=== PATIENT | male | born 1960 | race Caucasian/White ===

== ENCOUNTER 2025-01-19 18:53 | Emergency (ER) | payer OTHER, SELFPAY ==
[2025-01-19 18:56] VITALS: BP 200/104
--- NOTE | 2025-01-19 21:56 | ED.CVA ---
History of Present Illness
General
Chief Complaint: CVA/TIA Symptoms
Source: patient
Exam Limitations: none
Time Seen by Provider: 01/19/25 21:25
Nursing documentation reviewed up to this point in time: agreed with
Onset of Stroke Symptoms
Onset of symptoms known: Yes
Date of onset of symptoms: 01/18/25
Time pt last seen normal is known: No
History of Present Illness
History of Present Illness:
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
behind his left ear no insect bites no tick bites, no rash no arm or leg weakness no slurred speech no sick contacts no chronic medical issues
Review of Systems
Review of Systems
All Other Systems: Not applicable
Constitutional: Denies fatigue
EENT: Reports no symptoms
Respiratory: Reports no symptoms
Cardiac: Reports no symptoms
Skin: Reports no symptoms; Denies rash
Neurological: Reports weakness
Phy Exam
Physical Exam
Physical Exam:
Physical Exam
General: no apparent distress, not acutely ill
Neck: Midline trachea no jaundice slight erythema sclera on the left
Heart: s1/s2 regular rate and rhythm, no murmur. equal radial pulses.
Lungs: no acute respiratory distress. clear bilaterally
Neuro: alert and oriented. Left-sided facial weakness involving the forehead
Skin: no rash
Psychiatric: well kept. interactive and cooperative
Extremities: no edema.
Course
Orders/Labs/Results
Orders:
Orders
01/19/25 21:50
L[facility] Progressive Urgent
Prednisone [Deltasone] 50 mg PO NOW STA
Valacyclovir HCl [Valtrex] 500 mg PO NOW STA
01/19/25 21:51
Artificial Tears (Pf) [Refresh Eye Drops (Pf)] 1 drops OPHTH NOW STA
Vital Signs
Initial and Last Documented VS:
Initial Vital Signs
Temp Pulse Resp BP Pulse Ox
98.1 F 90 18 200/104 98
01/19/25 18:56 01/19/25 18:56 01/19/25 18:56 01/19/25 18:56 01/19/25 18:56
Last Documented Vital Signs
Temp Pulse Resp BP Pulse Ox
98.1 F 90 18 200/104 98
01/19/25 18:56 01/19/25 18:56 01/19/25 18:56 01/19/25 18:56 01/19/25 18:56
MDM/Problems Addressed
Differential Diagnosis Includes:
Peripheral seventh Carranza's palsy doubt stroke or central seventh
MDM/Problems Addressed:
Left-sided facial weakness and able to close the eye
*Pulse Oximetry
SaO2: 98
Oxygen Mode of Delivery: Room air
Patient hypoxic: no
*Critical Care Note
Total Time (30-74mins, 75-104mins- exclusive of procedures): Not Applicable
Update Note
Update Note:
Will treat with eyedrops and steroids antivirals check Lyme titer PCP follow-up ER if worsening symptoms
ED Attending Note
-
Portions of this chart may have been created with voice recognition software.� Occasional wrong word or��sound alike� substitutions may have occurred due to the inherent limitations of voice recognition software.
Discharge Plan
Departure
Patient Disposition: Home (Routine Discharge)
Date of Disposition: 01/19/25
Time of Disposition: 21:59
Patient with high blood pressure during this ER visit?: Yes
Condition: Good
Discharge Problem:
Carranza's palsy
Instructions: Carranza's Palsy (DC), BLOOD PRESSURE
Prescriptions:
New
valacyclovir [Valtrex] 500 mg tablet
500 mg PO BID Qty: 14 0RF
prednisone 50 mg tablet
50 mg PO DAILY Qty: 5 0RF
Artificial Tears (cmc) 1 % drops
1 drp ophthalmic (eye) QID PRN (Reason: dry eye(s)) Qty: 15 0RF
Referrals:
Barrett Laguerre, [Non-Admitting Privileges, Family Practice] - Next open appointment
Activity Restrictions/Additional Instructions:
Take antivirals and steroids as prescribed
Use artificial tears frequently to keep your eye moist
Buy eye ointment to keep your eye lubricated at bedtime
Interventions
Interventions:
*Risk Screen - Suicide Last Done: 01/19/25 19:00
*General Assessment Last Done: 01/19/25 18:56
*ED COVID-19 Vaccine History Last Done: 01/19/25 19:00
*ED Influenza Vaccine History Last Done: 01/19/25 19:00
ED Swallowing Screen Last Done: 01/19/25 21:59
Discharge Date and Time
Print Language: AUSTRALIAN
[2025-01-19 21:57] VITALS: BP 171/105
[2025-01-19 21:58] VITALS: BMI 26.8
[2025-01-19 22:00] VITALS: BP 170/106
[2025-01-19] MEDS: DELTASONE 50 MG PO (22:00)
[2025-01-19] MEDS: VALTREX 500 MG PO (22:00)
[2025-01-19] MEDS: REFRESH EYE DROPS (PF) 1 DROPS OPHTH (22:01)
== END 2025-01-19 22:27 | disposition home or self-care (01) ==
LOC: EMR 18:53
PROVIDERS: EMERGENCY PHYSICIAN Emergency Medicine; FAMILY PHYSICIAN Family Medicine
DX: G51.0 Bell's palsy (principal)
CPT/HCPCS: 99282; 86618